=== PATIENT | female | born 1945 | race Caucasian/White ===

== ENCOUNTER 2016-05-02 21:28 | Emergency (ER) | payer MEDICARE, OTHER ==
[~2016-05-02 21:28] MED LIST: ASAB PO; BONE UP PO; BONE-UP PO; BUM1 PO; CELEXA; CELEXA10 PO; CELEXA20 PO; CEREFOLI1 PO; CEREFOLIN; CEREFOLINNAC PO; COREG12 PO; COREG3 PO; COREG6 PO; ENALAPRIL; FLUCONAZOLE; FOLIC PO; K-TABS10 MEQ PO; KETOCONAZOLE; KLOR-CON M2020 MEQ PO; L20 PO; LEVAQUIN750 MG PO; LIPITOR80 MG PO; MAGNESIUM/POTASSIUM PO; MAGOX4 PO; MULTIPLE VIT PO; NAC; OLIVE OIL PO; PROMETRIUM; PROMETRIUM PO; SPIRO25 PO; TAMIFLU PO; VASOTEC2 PO; VASOTEC5 PO; VIT D3; VITAMIN D1000 UNI1 PO; VITAMIN D31000 UNIT PO; VITC500 PO; ZINC OXIDE; ZITH600 PO; ZITHROMAX500 MG PO; ZYP2 PO; ZYP5 PO; ZYPREXA; [UNRECOGNIZED DRUG - CODE] PO; [UNRECOGNIZED DRUG - OTHER] PO
== END 2016-05-02 22:22 | disposition home or self-care (01) ==
LOC: ER 21:28
PROC: 0HQ1XZZ Repair Face Skin, External Approach (ICD-10-PCS; principal; 2016-05-02)
DX: S01.81XA Laceration without foreign body of other part of head, initial encounter (principal); I10 Essential (primary) hypertension; W19.XXXA Unspecified fall, initial encounter; Z79.899 Other long term (current) drug therapy
CPT/HCPCS: 90471; 90714; 99283

== ENCOUNTER 2016-06-12 12:47 | Emergency (ER) | payer MEDICARE, OTHER | END 2016-06-12 16:50 | disposition home or self-care (01) | LOC: ER 12:47 | DX: R09.89 Other specified symptoms and signs involving the circulatory and respiratory systems (principal); I10 Essential (primary) hypertension; Z79.899 Other long term (current) drug therapy | CPT/HCPCS: 71020; 99283 ==